=== PATIENT | female | born 1980 | race Two or more races ===

== ENCOUNTER → 2017-12-11 | Day surgery (SDC) | payer OTHER ==
[~2017-12-11] MED LIST: AMOX1TAB5 PO; IRON18 MG PO; PERCOCET 5-3251 EACH PO; PREMARIN1.25 MG PO
== END | disposition home or self-care (01) ==
LOC: ADM 11-06 11:00 → CIR.AMB 11-13 07:00
DX: D25.0 Submucous leiomyoma of uterus (principal)